=== PATIENT | female | born 2000 | race American Indian/Alaskan Native ===

== ENCOUNTER 2023-02-12 16:10 | Emergency (ER) | payer SELFPAY ==
[2023-02-12 16:26] LABS: BASOPHILS ABSOLUTE AUTO 0.03 K/uL (0.00-0.20); BASOPHILS PERCENT AUTO 0.2 % (0.0-1.0); EOSINOPHILS PERCENT AUTO 0.7 % (0.0-6.0); HEMATOCRIT 39.8 % (37.0-47.0); HEMOGLOBIN 13.8 g/dL (12.0-16.0); IMMATURE GRAN ABSOLUTE AUTO 0.04 K/uL (0.00-0.05); IMMATURE GRAN PERCENT AUTO 0.3 % (0.0-0.4); LYMPHOCYTES ABSOLUTE AUTO 2.36 K/uL (1.00-4.80); LYMPHOCYTES PERCENT AUTO 17.4 % (24.0-44.0); MEAN CORPUSCULAR HEMOGLOBIN 28.3 pg (28.0-32.0); MEAN CORPUSCULAR HGB CONC 34.7 g/dL (32.0-36.0); MEAN CORPUSCULAR VOLUME 81.7 fL (83.0-99.0); MEAN PLATELET VOLUME 9.2 fL (9.4-12.3); MONOCYTES ABSOLUTE AUTO 0.47 K/uL (0.00-0.80); MONOCYTES PERCENT AUTO 3.5 % (0.0-8.0); NEUTROPHILS ABSOLUTE AUTO 10.58 K/uL (1.80-7.70); NEUTROPHILS PERCENT AUTO 77.9 % (41.0-71.0); PLATELET COUNT,PLT 322 K/uL (150-400); RED BLOOD CELL COUNT 4.87 M/uL (4.10-5.30); WHITE BLOOD CELL COUNT,WBC 13.58 K/uL (3.9-11.3)
[2023-02-12 16:40] LABS: APPEARANCE,URINE CLEAR; BILIRUBIN,URINE NEGATIVE (NEGATIVE); COLOR,URINE YELLOW; GLUCOSE,URINE NEGATIVE (NEGATIVE); KETONES,URINE NEGATIVE (NEGATIVE); LEUKOCYTE ESTERASE,URINE NEGATIVE (NEGATIVE); NITRITE,URINE NEGATIVE (NEGATIVE); OCCULT BLOOD,URINE NEGATIVE (NEGATIVE); PROTEIN,URINE NEGATIVE (NEGATIVE); UROBILINOGEN,URINE 0.2 EU/dL (<2.0)
[2023-02-12] MEDS ORDERED: Ondansetron 4 MG Tab.DIS PO ONE (16:53)
[2023-02-12 17:02] LABS: A/G RATIO 0.8 (0.9-1.6); ALBUMIN 3.5 g/dL (3.4-5.0); BILIRUBIN TOTAL 0.3 mg/dL (0.2-1.0); CALCIUM 8.9 mg/dL (8.5-10.1); CARBON DIOXIDE,CO2 23.3 mmol/L (21.0-32.0); CREATININE 0.7 mg/dL (0.6-1.0); EST CRCL DRUG DOSING (CG) 99.7 mL/min; POTASSIUM,K 3.6 mmol/L (3.5-5.1); PROTEIN TOTAL,TP 7.8 g/dL (6.4-8.2)
== END 2023-02-12 17:24 | disposition home or self-care (01) ==
LOC: MW.ED 16:10
DX: R10.30 Lower abdominal pain, unspecified (principal); D72.829 Elevated white blood cell count, unspecified; F32.A Depression, unspecified; Z88.0 Allergy status to penicillin
CPT/HCPCS: 36415; 80053; 81003; 81025; 85025; 99283; 99284

== ENCOUNTER 2023-09-09 05:03 | Inpatient (IN) | payer MEDICAID ==
[2023-09-09] MEDS ORDERED: Sodium Chloride 0.9% 20 ML SDV IV PRN (06:07)
[2023-09-09] MEDS ORDERED: Citric Acid/Sodium Citrate Solution 30 ML Cup PO ONE (06:07)
[2023-09-09] MEDS ORDERED: Sodium Chloride 0.9% 2.5 ML Syringe FLUSH PRN (06:07)
[2023-09-09] MEDS ORDERED: Oxytocin/0.9 % Sodium Chloride 30 UNIT/500 ML BAG IV SCH (06:15)
[2023-09-09 06:23] LABS: HEMATOCRIT 31.4 % (37.0-47.0); HEMOGLOBIN 10.4 g/dL (12.0-16.0); MEAN CORPUSCULAR HEMOGLOBIN 26.5 pg (28.0-32.0); MEAN CORPUSCULAR HGB CONC 33.1 g/dL (32.0-36.0); MEAN CORPUSCULAR VOLUME 80.1 fL (83.0-99.0); MEAN PLATELET VOLUME 10.5 fL (9.4-12.3); PLATELET COUNT,PLT 333 K/uL (150-400); RED BLOOD CELL COUNT 3.92 M/uL (4.10-5.30); WHITE BLOOD CELL COUNT,WBC 10.44 K/uL (3.9-11.3)
[2023-09-09] MEDS: Lactated Ringers 1,000 ML IV SCH ×2 (07:07→21:19)
[2023-09-09] MEDS ORDERED: ePHEDrine 50 MG/ML SDV IVPUSH PRN (07:14)
[2023-09-09] MEDS ORDERED: droPERidol 5 MG/2 ML SDV IVPUSH PRN (07:14)
[2023-09-09] MEDS ORDERED: fentaNYL 50 MCG/ML SDV IVPUSH PRN ×2 (07:14)
[2023-09-09] MEDS ORDERED: HYDROmorphone 1 MG/ML Syringe IVPUSH PRN (07:14)
[2023-09-09] MEDS ORDERED: Albuterol 0.083% 2.5 MG/3 ML Neb Soln NEB PRN (07:14)
[2023-09-09] MEDS ORDERED: Naloxone 0.4 MG/ML SDV IVPUSH PRN (07:14)
[2023-09-09] MEDS ORDERED: Nalbuphine 10 MG/1 ML Vial IVPUSH PRN (07:14)
[2023-09-09] MEDS ORDERED: diphenhydrAMINE 50 MG/ML SDV IVPUSH PRN ×2 (07:14→18:19)
[2023-09-09] MEDS ORDERED: Morphine 2 MG/ML SYRINGE IVPUSH PRN (07:14)
[2023-09-09] MEDS ORDERED: Metoclopramide 10 MG/2 ML SDV IVPUSH PRN (07:14)
[2023-09-09] MEDS ORDERED: Ondansetron 4 MG/2 ML SDV IVPUSH PRN ×3 (07:14→18:19)
[2023-09-09] MEDS ORDERED: EPINEPHrine 1 MG/1 ML Amp ONE (07:27)
[2023-09-09] MEDS ORDERED: ceFAZolin 1 GM Vial ONE (07:27)
[2023-09-09] MEDS ORDERED: Ketorolac 30 MG/ML SDV ONE (07:27)
[2023-09-09] MEDS ORDERED: Morphine PF 10 MG/10 ML SDV ONE (07:27)
[2023-09-09] MEDS ORDERED: fentaNYL 100 MCG/2 ML SDV ONE (07:27)
[2023-09-09] MEDS ORDERED: Bupivacaine 0.25% 30 ML SDV ONE (07:27)
[2023-09-09] MEDS ORDERED: Ropivacaine 0.5% 5 MG/ML 30 ML SDV ONE (07:27)
[2023-09-09] MEDS ORDERED: Oxytocin 10 Units/1 ML SDV ONE (07:27)
[2023-09-09] MEDS ORDERED: Phenylephrine HCl In 0.9% NaCl 1 MG/10 ML Syringe ONE (07:50)
[2023-09-09] MEDS: Acetaminophen 1,000 MG in Premix Bag 1 BAG IV SCH (10:36)
[2023-09-09] MEDS: Ketorolac 30 MG/ML SDV IVPUSH PRN (17:25)
[2023-09-09] MEDS ORDERED: Oxytocin 10 Units/1 ML SDV IM PRN (18:19)
[2023-09-09] MEDS ORDERED: Bisacodyl 10 MG Supp RECTAL PRN (18:19)
[2023-09-09] MEDS ORDERED: Methylergonovine 0.2 MG/1 ML Amp IM PRN (18:19)
[2023-09-09] MEDS ORDERED: Misoprostol 200 MCG Tab RECTAL PRN (18:19)
[2023-09-09] MEDS ORDERED: Ketorolac 30 MG/ML SDV IVPUSH SCH (18:30)
[2023-09-09] MEDS: Docusate Sodium 100 MG Cap PO SCH (21:18)
[2023-09-09] MEDS: Sodium Chloride 0.9% 10 ML Syringe FLUSH PRN (21:18)
[2023-09-10] MEDS: Ketorolac 30 MG/ML SDV IVPUSH SCH
[2023-09-10] MEDS: Lanolin 100% Cream 7 GM Tube TOP PRN (04:12)
[2023-09-10 05:44] LABS: HEMOGLOBIN 7.9 g/dL (12.0-16.0)
[2023-09-10] MEDS: Acetaminophen/oxyCODONE 325-5 MG Tab PO PRN ×2 (17:48→23:41)
[2023-09-10] MEDS: Ibuprofen 800 MG Tab PO PRN (21:06)
[2023-09-11] MEDS ORDERED: Ibuprofen 800 MG Tab PO PRN (02:00)
[2023-09-11] MEDS: Acetaminophen/oxyCODONE 325-5 MG Tab PO PRN (04:38)
[2023-09-11 05:38] LABS: HEMATOCRIT 23.4 % (37.0-47.0); HEMOGLOBIN 7.4 g/dL (12.0-16.0)
== END 2023-09-12 12:47 | disposition home or self-care (01) | DRG 788 ==
LOC: MW.OB 05:03
PROVIDERS: ADMIT Obstetrics & Gynecology Obstetrics; ATTEND Obstetrics & Gynecology Obstetrics
PROC: 10D00Z1 Extraction of Products of Conception, Low, Open Approach (ICD-10-PCS; principal; 2023-09-09 08:00)
DX: O34.211 Maternal care for low transverse scar from previous cesarean delivery (principal); Z3A.39 39 weeks gestation of pregnancy; Z37.0 Single live birth; Z88.0 Allergy status to penicillin; Z98.890 Other specified postprocedural states
CPT/HCPCS: 01961; 36415; 64488; 85014; 85018; 85027; 86592; 86850; 86900; 86901; A9270-GY; J0131; J0171; J0665; J0690; J1100; J1885; J2274; J2371; J2590; J2795; J3010; J3490; J7120